=== PATIENT | female | born 1985 | race Caucasian/White ===

== ENCOUNTER 2018-11-26 16:24 | Emergency (ER) | payer SELFPAY ==
[~2018-11-26] VITALS: Ht 154.9 cm; Wt 60.5 kg
[2018-11-26 16:30] VITALS: Ht 154.9 cm; Wt 60.5 kg
[2018-11-26] MEDS ORDERED: TORADOL10 MG PO (17:29)
[2018-11-26 17:38] VITALS: BP 114/80
== END 2018-11-26 17:45 | disposition home or self-care (01) ==
LOC: D.ER 16:24
DX: M79.671 Pain in right foot (principal)